=== PATIENT | female | born 1985 | race African-American/Black ===

== ENCOUNTER 2017-12-28 18:59 | Inpatient (IN) | payer OTHER, MEDICAID ==
[~2017-12-28] VITALS: Ht 170.2 cm; Wt 59.9 kg
[~2017-12-28 18:59] MED LIST: PRENTAB28 PO
[2017-12-28 19:53] LABS: Basophils # (auto) 0 uL; Eosinophils # (auto) 0.2 uL; Eosinophils % (auto) 1.8 % (0.0-7.0); Monocytes # (auto) 0.8 uL; Neutrophils # (auto) 6.3 uL
[2017-12-28 19:55] LABS: Basophils % (auto) 0.5 % (0.0-2.0); Hematocrit 28.5 % (36.0-46.0); Hemoglobin 9.2 g/dL (12.2-16.2); Lymphocytes # (auto) 1.4 uL; Lymphocytes % (auto) 16.4 % (10.0-50.0); Mean Corpuscular Hemoglobin 23.8 pg (28.0-32.0); Mean Corpuscular Hgb Conc. 32.1 g/dL (32.0-36.0); Mean Corpuscular Volume 74.2 fL (80.0-100.0); Neutrophils % (auto) 72.3 % (37.0-80.0); Nucleated Red Blood Cells % 0.1 %; Platelet Count (auto) 220 10^3/uL (140-450); Red Blood Cells 3.85 10^6/uL (4.0-5.20); Red Cell Distribution Width 16.6 % (11.8-14.3); White Blood Cell 8.7 10^3/uL (4.4-10.8)
[2017-12-28 20:03] LABS: Urine Bacteria NONE SEEN /hpf (None Seen); Urine Blood Negative /uL (Negative); Urine Specific Gravity 1.009 (1.001-1.035); Urine WBC 1 /hpf (0 - 5)
[2017-12-28 20:13] LABS: Alcohol, Urine < 3.0 mg/dL (0-5); Amphetamine Screen, Urine NEGATIVE (NEGATIVE); Barbiturate Scree,Urine NEGATIVE (NEGATIVE); Benzodiazephine Screen, Urine NEGATIVE (NEGATIVE); Cannabinoid Screen, Urine NEGATIVE (NEGATIVE); Cocaine Screen, Urine NEGATIVE (NEGATIVE); Opiate Scree,Urine NEGATIVE (NEGATIVE); Phencyclidine Screen, Urine NEGATIVE (NEGATIVE)
[2017-12-28] MEDS ORDERED: LACTATED RINGER'S 1,000 ML IV SCH (20:26)
[2017-12-28] MEDS ORDERED: LACT. RINGERS/OXYTOCIN 20UNITS 1,000 ML IV SCH (20:26)
[2017-12-28] MEDS ORDERED: METHYLERGONOVINE MALEATE 0.2 MG/ML AMP IM PRN (20:30)
[2017-12-28] MEDS ORDERED: NALBUPHINE HCL 10 MG/1ml INJECTION IV PRN (20:30)
[2017-12-28] MEDS ORDERED: PROMETHAZINE HCL 25 MG/ML 1ML IM PRN (20:30)
[2017-12-28] MEDS ORDERED: WITCH HAZEL-GLYCERIN PAD TOP PRN (20:30)
[2017-12-28] MEDS ORDERED: PHISODERM TOP SOLN 240ML BTL TOP PRN (20:30)
[2017-12-28] MEDS ORDERED: PENICILLIN G POT 5MIL/D5 50ML 50 ML IV ONE ×2 (20:30→20:37)
[2017-12-28] MEDS ORDERED: DERMOPLAST 60ML BOTTLE TOP PRN (20:30)
[2017-12-28 20:35] LABS: Albumin 2.8 g/dL (3.4-5.0); Bilirubin, Total 0.6 mg/dL (0.2-1.0); Calcium 8.3 mg/dL (8.5-10.1); Potassium 3.2 mmol/L (3.5-5.1)
[2017-12-28 20:41] LABS: INR 0.87 (0.9-1.15); Partial Thromboplastin Time 24.6 sec (22.64-33.71); Prothrombin Time 9.5 sec (9.37-12.3)
[2017-12-28] MEDS ORDERED: PENICILLIN G POT 5MILLION UNIT VIAL ONE (23:47)
[2017-12-28] MEDS ORDERED: STERILE WATER 10 ML ONE (23:49)
[2017-12-29] MEDS: LIDOCAINE 2%HCL (LOCAL ANESTH.) INJ 20ML MDV IJ PRN ×2 (00:10→01:31)
[2017-12-29] MEDS ORDERED: PENICILLIN G POTASSIUM 2,500,000 UNITS in D5W 5% 50 ML IV SCH (00:30)
[2017-12-29] MEDS ORDERED: IBUPROFEN 600 MG TAB PO ONE (00:31)
[2017-12-29] MEDS ORDERED: LACT. RINGERS/OXYTOCIN 20UNITS 500 ML IV ONE (00:47)
[2017-12-29] MEDS ORDERED: ONDANSETRON HCL 4 MG/2 ML VIAL IV PRN (01:45)
[2017-12-29] MEDS ORDERED: LACT. RINGERS/OXYTOCIN 20UNITS 1,000 ML IV SCH (01:47)
[2017-12-29] MEDS: ACETAMINOPHEN 325 MG TAB PO PRN ×2 (02:30→22:23)
[2017-12-29] MEDS: IBUPROFEN 600 MG TAB PO PRN ×5 (04:08→23:15)
[2017-12-29 04:17] VITALS: BP 93/55
[2017-12-29 06:56] VITALS: BP 93/53
[2017-12-29 12:19] VITALS: BP 95/56
[2017-12-29 16:13] VITALS: BP 86/47
[2017-12-29 19:00] VITALS: BP 85/47
[2017-12-30 00:15] VITALS: BP 95/47
[2017-12-30 03:07] LABS: RPR Non Reactive (Non Reactive)
[2017-12-30] MEDS: IBUPROFEN 600 MG TAB PO PRN (10:01)
[2017-12-30 10:32] VITALS: BP 90/54
== END 2017-12-30 10:29 | disposition home or self-care (01) | DRG 775 ==
LOC: UNDOADMOB 18:59 → LDRP 18:59 → OBSVTOIN 20:21 → INTOOBSV 20:21 → OBSVTOIN 20:22 → LDRP 20:22
PROVIDERS: ADMIT Obstetrics & Gynecology; ATTEND Obstetrics & Gynecology
PROC: 10E0XZZ Delivery of Products of Conception, External Approach (ICD-10-PCS; principal; 2017-12-29)
PROC: 10907ZC Drainage of Amniotic Fluid, Therapeutic from Products of Conception, Via Natural or Artificial Opening (ICD-10-PCS; 2017-12-29)
DX: O69.81X0 Labor and delivery complicated by cord around neck, without compression, not applicable or unspecified (principal); O76 Abnormality in fetal heart rate and rhythm complicating labor and delivery; Z37.0 Single live birth; O99.824 Streptococcus B carrier state complicating childbirth; Z3A.39 39 weeks gestation of pregnancy
CPT/HCPCS: 36415; 59025; 59409; 76818; 80053; 80307; 81001; 85025; 85610; 85730; 86592; 86850; 86900; 86901; 96365; 96366; 96374; G0378; J2405; J2540; J2590; J7060

== ENCOUNTER 2022-01-12 10:55 | Emergency (ER) | payer MEDICAID, OTHER ==
[~2022-01-12] VITALS: Ht 170.2 cm; Wt 54.4 kg
[2022-01-12] MEDS ORDERED: ONDANSETRON ODT 4 MG TAB PO ONE (11:15)
[2022-01-12] MEDS ORDERED: ONDANSETRON HCL 4 MG/2 ML VIAL IV ONE (11:30)
[2022-01-12 12:19] LABS: Basophils # (auto) 0.1 10 ^3/uL (0-0.2); Basophils % (auto) 1.1 % (0.0-2.0); Eosinophils # (auto) 0.1 10 ^3/uL (0-0.8); Eosinophils % (auto) 2.9 % (0.0-7.0); Hematocrit 37.7 % (36.0-46.0); Hemoglobin 12.6 g/dL (12.2-16.2); Lymphocytes # (auto) 2.5 10 ^3/uL (0.4-5.4); Lymphocytes % (auto) 49.6 % (10.0-50.0); Mean Corpuscular Hgb Conc. 33.4 g/dL (32.0-36.0); Mean Corpuscular Volume 89.9 fL (80.0-100.0); Monocytes # (auto) 0.5 10 ^3/uL (0-1.3); Monocytes % (auto) 8.9 % (0.0-12.0); Neutrophils # (auto) 1.9 10 ^3/uL (1.6-8.6); Neutrophils % (auto) 37.5 % (37.0-80.0); Nucleated Red Blood Cells % 0.1 %; Red Blood Cells 4.19 10^6/uL (4.0-5.20); Red Cell Distribution Width 13.2 % (11.8-14.3); White Blood Cell 5.1 10^3/uL (4.4-10.8)
[2022-01-12 12:38] LABS: Albumin 3.7 g/dL (3.4-5.0); Calcium 8.5 mg/dL (8.5-10.1); Potassium 3.8 mmol/L (3.5-5.1)
[2022-01-12 12:46] LABS: BUN/Creatinine Ratio 9.3; Bilirubin, Total 0.5 mg/dL (0.2-1.0)
[2022-01-12 14:11] VITALS: BP 110/68
== END 2022-01-12 14:21 | disposition home or self-care (01) ==
LOC: ER 10:55 → EDBD 10:55 → ER 14:12
DX: R07.89 Other chest pain (principal); M94.0 Chondrocostal junction syndrome [Tietze]; B34.9 Viral infection, unspecified; F12.10 Cannabis abuse, uncomplicated; Z32.02 Encounter for pregnancy test, result negative
CPT/HCPCS: 36415; 71046; 80053; 81025; 84484; 85025; 93005; 96374; 99285; J2405; Q0162